=== PATIENT | female | born 1960 | race Caucasian/White ===

== ENCOUNTER → 2016-11-02 | Outpatient (CLI) | payer BC | END | disposition home or self-care (01) | LOC: LABWHC1 14:41 | PROVIDERS: ATTEND Otolaryngology | DX: J30.89 Other allergic rhinitis (principal) | CPT/HCPCS: 36415; 86001 ==

== ENCOUNTER → 2016-12-28 | Outpatient (CLI) | payer BC ==
--- NOTE | 2016-12-31 08:02 | MM ---
Reason for exam: screening (asymptomatic). Last mammogram was performed 7 years and 9 months ago. Physical Findings: A clinical breast exam by your physician is recommended on an annual basis and results should be correlated with mammographic findings. MG Screening Mammo w CAD Bilateral CC and MLO view(s) were taken. Prior study comparison: March 15, 2009, bilateral digital screening mammogram. January 15, 2005, bilateral screening mammogram w/CAD. The breast tissue is heterogeneously dense. This may lower the sensitivity of mammography. Focal asymmetry in the outer left CC view 6cm from nipple. This finding is changed when compared with previous exams. ASSESSMENT: Incomplete: need additional imaging evaluation, BI-RAD 0 RECOMMENDATION: Special view mammogram of the left breast. If lesion persists on supplemental views, image directed ultrasound is recommended. [facility] will attempt to contact patient to return for supplemental views and ultrasound if indicated.
== END | disposition home or self-care (01) ==
LOC: RADMAMWWP 12:21
PROVIDERS: ATTEND Obstetrics & Gynecology
DX: Z12.31 Encounter for screening mammogram for malignant neoplasm of breast (principal)

== ENCOUNTER → 2017-01-05 | Outpatient (CLI) | payer BC ==
--- NOTE | 2017-01-05 10:34 | MM ---
Reason for exam: additional evaluation requested from abnormal screening. Last mammogram was performed less than 1 month ago. Physical Findings: Nurse did not find any significant physical abnormalities on exam. MG 3D Work Up W/Cad LT Spot compression CC, spot compression MLO, and ML view(s) were taken of the left breast. Prior study comparison: December 28, 2016, bilateral MG screening mammo w CAD. March 15, 2009, bilateral digital screening mammogram. There is no dominant lesion. There is no discrete abnormality. These results were verbally communicated with the patient and result sheet given to the patient on 01/05/17. ASSESSMENT: Negative, BI-RAD 1 RECOMMENDATION: Return to routine screening mammogram schedule for both breasts.
== END | disposition home or self-care (01) ==
LOC: RADMAMWWP 09:55
PROVIDERS: ATTEND Obstetrics & Gynecology
DX: R92.8 Other abnormal and inconclusive findings on diagnostic imaging of breast (principal)
CPT/HCPCS: G0206; G0279

== ENCOUNTER → 2017-01-21 | Outpatient (CLI) | payer BC ==
--- NOTE | 2017-01-21 16:35 | BD ---
EXAMINATION TYPE: MG DEXA axial skeleton. DATE OF EXAM: 01/21/2017 COMPARISON: NONE CLINICAL HISTORY: 56-year-old FEMALE : Z3.820 SCREENING FOR OSTEOPOROSIS Height: 65 Weight: 149 FRAX RISK QUESTIONS: Alcohol (3 or more units per day): NO Family History (Parent hip fracture): YES, BUT NO FXS Glucocorticoids (More than 3mos): YES (Ex: prednisone, prednisolone, methylprednisolone, dexamethasone, and hydrocortisone). History of Fracture in Adulthood: NO Secondary Osteoporosis: NO 1. Type 1 Diabetes: NO 2. Hyperthyroidism: NO 3. Menopause before 45: NO 4. Malnutrition: NO 5. Chronic liver disease: PT UNSURE Rheumatoid Arthritis: NO Current Tobacco Use: YES, QUIT 2 WKS AGO RISK FACTORS HISTORY OF: Family History of Osteoporosis: YES, HER MOTHER...NO FXS Active: YES Diet low in dairy products/other sources of calcium: YES Postmenopausal woman: YES NOW....AT 56 YRS OLD Hyperparathyroidism: NO Adrenal Insufficiency: NO MEDICATIONS: Prednisone or other steroids: SINGULAIR How Long: YR Additional Medications: REFLUX MEDS, PROBIOTICS Additional History: MOLD AND KENJI THROUGHOUT HER WHOLE BODY, CHLOR OXYGEN, FOR RED BLOOD CELLS EXAM MEASUREMENTS: Bone mineral densitometry was performed using the [employer] System. Bone mineral density as measured about the Lumbar spine is: ----- L1-L4(G/cm2): 1.212 T Score Values are as follows: ----- L1: -0.5 ----- L2: -0.1 ----- L3: 0.7 ----- L4: 0.7 ----- L1-L4: 0.3 Bone mineral density FIRST BONE DENSITY SCAN.....BASELINE STUDY Bone mineral density about the R hip (g/cm2): 0.897 Bone mineral density about the L hip (g/cm2): 0.947 T Score values are as follows: -----R Neck: -1.0 -----L Neck: -0.4 -----R Total: -0.9 -----L Total: -0.5 Bone mineral density BASELINE STUDY FRAX%'S: THERE IS A 5.6% CHANCE OF A MAJOR OSTEOPOROTIC FX AND A 0.5% FOR A HIP FX.....PROBABILITY OF FX IN 10 YRS TIME IMPRESSION: Normal (Values between +1 and -1 indicate normal bone mass). Measurements bordering on osteopenia at the right hip. Consider repeating this study in 5 years or sooner if there is some new clinical indication. NOTE: T-SCORE=SD OF THE YOUNG ADULT MEAN.
== END | disposition home or self-care (01) ==
LOC: RADBDWWP 13:01
PROVIDERS: ATTEND Obstetrics & Gynecology
DX: Z13.820 Encounter for screening for osteoporosis (principal)
CPT/HCPCS: 77080